=== PATIENT | male | born 1960 | race Caucasian/White ===

== ENCOUNTER 2024-07-24 11:00 | Emergency (ER) | payer BC, SELFPAY ==
[2024-07-24 11:05] VITALS: BP 171/97; PULSE 65; RESP 18; TEMP 36.3; O2SAT 96; BMI 30.3
--- NOTE | 2024-07-24 11:12 | ED.GENADULT ---
HPI - General Adult General Time Seen by Provider: 11:12 Date Seen: 07/24/24 Chief complaint: Flank Pain Stated complaint: Flank pain Time Seen by Provider: 07/24/24 11:12 Source: patient and RN notes reviewed Mode of arrival: ambulatory Limitations: no limitations History of Present Illness HPI narrative: This with 64-year-old male is ambulatory into the ED accompanied by presumed significant other for complaint of sudden onset right lower quadrant abdominal pain associated with urinary symptoms. About 1-2 hours ago he started with feeling urinary frequency of small amounts, feeling like he is not emptying. He has no nausea or vomiting but does have significant pain. He has had no fevers chills. He has not noted any hematuria. He has had no prior abdominal surgeries but does have a history of a kidney stone before with treatment of that. He indeed did have a history of a kidney stone a few years ago that required stent placement and what sounds to be lithotripsy. Again, no nausea or vomiting. No change in bowel habits. Pain came on suddenly, he feels it is consistent with kidney stone pain. Related Data Home Medications ?Medication ?Instructions ?Recorded ?Confirmed lisinopril 10 1 tab PO DAILY 12/28/23 07/24/24 mg-hydrochlorothiazide 12.5 mg tablet Zyrtec-D 07/24/24 Previous Rx's ?Medication ?Instructions ?Recorded ketorolac 10 mg tablet 10 mg PO Q6H PRN pain #20 tabs 07/24/24 oxycodone 5 mg tablet 5 mg PO Q6H PRN pain #10 tabs 07/24/24 tamsulosin 0.4 mg capsule (Flomax) 0.4 mg PO DAILY #14 caps 07/24/24 Allergies Allergy/AdvReac Type Severity Reaction Status Date / Time ibuprofen Allergy Hives Verified 07/04/24 14:03 Review of Systems Status of ROS: Reports: 6 or more systems reviewed and unremarkable except as noted in History and below [facility] Medical History Tear of medial meniscus of left knee ?S83.242A - Other tear of medial meniscus, current injury, left knee, initial encounter (ICD-10) Osteoarthritis of left knee ?M17.12 - Unilateral primary osteoarthritis, left knee (ICD-10) Left flank pain ?R10.9 - Unspecified abdominal pain (ICD-10) Sleep apnea ?G47.30 - Sleep apnea, unspecified (ICD-10) Hypertension ?I10 - Essential (primary) hypertension (ICD-10) Surgical History History of arthroscopy of right shoulder (04/25/15) ?Z98.890 - Other specified postprocedural states (ICD-10) Status post medial meniscectomy of right knee (06/04/16) ?Z98.890 - Other specified postprocedural states (ICD-10) Social History Smoking Status: Never smoker Do you use any of these nicotine containing products: None Second hand tobacco smoke exposure: No Exam Const: Vital Signs, click to edit/add: Vital Signs - 24 hr 07/24/24 11:05 Temperature 97.4 F L Pulse Rate [Pulse Oximeter] 65 Respiratory Rate 18 Blood Pressure [Ri ght Upper Arm] 171/97 H Pulse Oximetry 96 Oxygen Delivery Me thod Room Air This 64-year-old male is alert, interactive, no apparent distress. Does not appear significantly uncomfortable but would not say that he is at his baseline. Do see him move a little bit in bed at times. Sclera clear, conjugate gaze, symmetrical facial function, can speak in complete sentences. Lungs are clear no wheezing or crackles, no tachypnea, no CVA tenderness. CV regular rate and rhythm, no murmur, normal S1-S2, no S3-S4. Abdomen is soft, nondistended but he does have some mid to right lower quadrant tenderness without any rebound or guarding, no underlying masses noted. Documenting provider has reviewed patient's vital signs: yes Course Course ED Course: Patient is not experiencing any nausea right now, did discussed pain management, will start with some IV Toradol and can move to narcotics if needed. He has left urinalysis, will get this to the lab, will check basic labs with CBC, C reactive protein, basic metabolic panel and lactate. The sudden onset does support urinary symptoms but we did review that in the right lower quadrant there is bowel there including appendix. Will start with noncontrast CT but may need to consider follow-up imaging with contrast if there is no evidence of urinary source of this such as a kidney stone. Doubt infection as he is not febrile and symptoms of only been present to couple hours at most. If this is kidney stone, really should know the size of the stone to see if he will need urologic follow-up. Reevaluation(s) Time of Reevaluation #1: 11:58 Reevaluation #1: Patient did not have relief of pain with Toradol, is rating pain not out of 10 to nursing staff. Have ordered Zofran and morphine for him, awaiting CT imaging to come back. Urinalysis does not necessarily indicate stone pathology at this time. Time of Reevaluation #2: 12:26 Reevaluation #2: Have reviewed with Erik his CT imaging results. Did provide him a copy of the results. He does have a 3 mm stone at the right UVJ. We also discussed the lesion on the right kidney with comparison from a CT in 2020 which is when he reports was his last kidney stone. He will need outpatient follow-up for this, can contact Urology or see if his primary care provider can order the renal mass protocol imaging. Does not need to be done emergently. He notes that he is feeling urinary urgency but cannot urinate or only small amounts. We will bladder scan him at this time just to ensure that he is not having urinary retention. Sometimes patients with kidney stones can have the symptoms without any urinary retention. Time of Reevaluation #3: 12:48 Reevaluation #3: Bladder scan only showed 23 mL. Patient is likely just having irritative bladder symptoms from the right stone at the UVJ. Vital Signs Vital signs: Initial Vital Signs Temperature 97.4 F L 07/24/24 11:05 Temperature Source Temporal Artery Scan 07/24/24 11:05 Pulse Rate 65 07/24/24 11:05 Respiratory Rate 18 07/24/24 11:05 Blood Pressure 171/97 H 07/24/24 11:05 Blood Pressure Mean 121 H 07/24/24 11:05 Blood Pressure Position Sitting 07/24/24 11:05 Pulse Oximetry 96 07/24/24 11:05 Oxygen Delivery Method Room Air 07/24/24 11:05 Vital Signs Temperature 97.4 F L 07/24/24 11:05 Pulse Rate 65 07/24/24 11:05 Respiratory Rate 18 07/24/24 11:05 Blood Pressure 171/97 H 07/24/24 11:05 Pulse Oximetry 96 07/24/24 11:05 Oxygen Delivery Method Room Air 07/24/24 11:05 Temperature 97.4 F L 07/24/24 11:05 Pulse Rate 65 07/24/24 11:05 Respiratory Rate 18 07/24/24 11:05 Blood Pressure 171/97 H 07/24/24 11:05 Pulse Oximetry 96 07/24/24 11:05 Oxygen Delivery Method Room Air 07/24/24 11:05 Medications Administered Medications: Discontinued Medications Generic Name Dose Route Start Last Admin Trade Name Freq PRN Reason Stop Dose Admin Ketorolac Tromethamine 15 mg 07/24/24 11:17 07/24/24 11:38 Ketorolac 15 Mg/Ml Inj IVP 07/24/24 11:18 15 mg ONCE ONE Administration Morphine Sulfate 4 mg 07/24/24 11:57 07/24/24 12:17 Morphine 4 Mg/Ml Inj IVP 07/24/24 11:58 4 mg ONCE ONE Administration Ondansetron HCl 4 mg 07/24/24 11:57 07/24/24 12:18 Ondansetron 2 Mg/Ml Inj IVP 07/24/24 11:58 4 mg ONCE ONE Administration Medical Decision Making Lab Data Labs: Lab Results 07/24/24 07/24/24 Range/Units 11:16 11:35 WBC 9.20 (4.50-11.00) K/uL RBC 4.74 (4.30-5.90) m/uL Hgb 14.6 (13.5-17.5) gm/dL Hct 42.7 (37.0-53.0) % MCV 90 (80-100) fL MCH 31 (26-34) pg MCHC 34 (32-36) gm/dL RDW Coeff of Blu 11.3 L (11.5-15.5) % Plt Count 246 (140-440) K/uL Neut % (Auto) 72.6 H (42.0-72.0) % Lymph % (Auto) 19.1 L (20-44) % [place] % (Auto) 6.2 (0.0-11.0) % Eos % (Auto) 1.6 (0.0-7.0) % Baso % (Auto) 0.4 (0.0-3.0) % Neut # (Auto) 6.70 (1.7-7.0) K/uL Lymph # (Auto) 1.80 (0.90-2.90) K/uL [place] # (Auto) 0.60 (0.00-0.90) K/UL Eos # (Auto) 0.15 (0.00-0.50) K/uL Baso # (Auto) 0.04 (0.00-0.30) K/uL Abs Immat Gran (auto) 0.01 (0.00-0.30) K/uL Imm/Tot Granulo (auto) 0.1 % Sodium 139 (135-149) mmol/L Potassium 4.5 (3.6-5.1) mmol/L Chloride 105 (96-114) mmol/L Carbon Dioxide 29 (20-32) mmol/L Anion Gap 5 L (7-15) mEq/L BUN 21 (7-30) mg/dL Creatinine 0.9 (0.5-1.5) mg/dL Estimated Creat Clear 85.45 Estimated GFR 96 ml/min Glucose 131 H (60-115) mg/dL Lactate 1.1 (0.5-1.9) mmol/L Calcium 9.6 (8.4-10.6) mg/dL C-Reactive Protein < 0.5 L (0.5-1.0) mg/dL Urine Color Yellow (Yellow) Urine Appearance Clear (Clear) Urine pH 7.5 (5.0-8.5) Ur Specific [place] 1.020 (1.000-1.030) Urine Protein Negative (Negative) Urine Glucose (UA) Negative (Negative) Urine Ketones Negative (Negative) Urine Blood Negative (Negative) Urine Nitrite Negative (Negative) Urine Bilirubin Negative (Negative) Urine Urobilinogen 0.2 (0.2-1.0) Ur Leukocyte Esterase Negative (Negative) Urine RBC 0-2 (0-2) Urine WBC 0-2 (0-5) Ur Squamous Epith Cells None (None-Few) Urine Bacteria None (None) Imaging Data CT scan - abdomen: Attestation: I have reviewed the pertinent imaging results. My impression: Did review imaging and do see what is consistent with hydronephrosis on the right side, believe there is a stone along the right UVJ, wait radiology over read. Radiologist's impression: Patient: MARTA VALENCIA Facility:?[facility] Patient ID:?[id number] Site Patient ID:?[id number]. Site :?[id number] Study:?CT-Abdomen/Pelvis WITHOUT-07/24/2024 11:37:44 AM Ordering Physician:Maday Haley Final Report: INDICATION: Sudden onset right lower quadrant pain. History of kidney stones. TECHNIQUE: CT abdomen and pelvis acquired without contrast. COMPARISON: CT abdomen and pelvis without contrast 01/22/2021. FINDINGS: Lower chest: Mild bibasilar atelectasis. No pleural or pericardial effusions. Liver: Unremarkable. Spleen: Unremarkable. Pancreas: Unremarkable. Gallbladder and bile ducts: No calcified stones or biliary ductal dilatation. Kidneys: A 3 mm stone near the right ureterovesicular junction causes [id number] hydroureteronephrosis and perinephric stranding. An indeterminate exophytic 2.4 cm lesion in the lateral lower pole of the right kidney has increased. This previously measured 1.3 cm. Left kidney is unremarkable. Adrenal glands: Unremarkable. GI tract: No obstruction or focal inflammatory changes. Normal appendix. No free air or free fluid. Small fat containing umbilical hernia, unchanged. Lymph nodes: No pathologic lymphadenopathy. Vascular structures: Mild atherosclerotic disease. No abdominal aortic aneurysm. Pelvic Organs: Stone near the right ureterovesicular junction as discussed above. Bladder as imaged is otherwise unremarkable. Bones: No acute or suspicious osseous abnormality. Degenerative changes spine and pelvis. IMPRESSION: 1. Mild to moderate right hydroureteronephrosis due to 3 mm stone near the ureterovesicular junction. 2. Indeterminate exophytic 2.4 cm right renal lesion has increased. Follow-up CT renal mass protocol without and with IV contrast is recommended for further evaluation. Dictated by Vladimir Ferguson MD @ 07/24/2024 12:10:01 PM Please note that all CT scans at this facility use dose modulation, iterative reconstruction, and/or weight-based dosing when appropriate to reduce radiation dose to as low as reasonably achievable. Dictated by: Vladimir Ferguson MD @ 07/24/2024 12:10:22 (Electronic Signature) Discharge Plan Discharge Clinical Impression: Lesion of right [place] kidney, Renal colic on right side, Right nephrolithiasis Patient Disposition: Home, Self-Care Condition: Stable Instructions: Kidney Stones (ED), Renal Colic (ED) Additional Instructions: Start Flomax intake daily until the stone has passed. Can use Tylenol 1000 mg 3 times a day baseline for pain. For more moderate pain, can use the Toradol per prescription. If pain is severe, have written for oxycodone. If you are using oxycodone, this can be constipating and do recommend going on MiraLax 17 g daily and possibly even senna, 1-2 pills once to twice a day for a goal of a normal formed bowel movement daily. If you develop uncontrolled pain with this regimen, develops vomiting or fever with on passed kidney stone, do recommend re-evaluation. You need to follow-up with your primary care provider hopefully within the next 1-2 weeks, they may be able to order the outpatient CT scan to further evaluate this right renal lesion to ensure it is nothing concerning. You ultimately may need urology referral and can certainly try to get into the urologist your self rather than your primary care provider. Drink plenty of fluids with a goal of keeping your urine clear. Activity Level: Activity as Tolerated Prescriptions: New ketorolac 10 mg tablet 10 mg PO Q6H PRN (Reason: pain) Qty: 20 0RF Rx Instructions: maximum total duration of 5 days from all oral, intranasal, or parenteral formulations tamsulosin [Flomax] 0.4 mg capsule 0.4 mg PO DAILY Qty: 14 0RF oxycodone 5 mg tablet 5 mg PO Q6H PRN (Reason: pain) Qty: 10 0RF No Action lisinopril-hydrochlorothiazide 10-12.5 mg tablet 1 tab PO DAILY Zyrtec-D Follow Up/Referrals: Paco Manzanares MD [Primary Care Provider] - Stand Alone Forms: [employer] Info Instructions
--- NOTE | 2024-07-24 11:17 | CRLHL7_ITS ---
For Patients: As a result of the Century Cures Act, medical imaging exams and procedure reports are released immediately into your electronic medical record. You may view this report before your referring provider. If you have questions, please contact your health care provider. INDICATION: Sudden onset right lower quadrant pain. History of kidney stones. TECHNIQUE: CT abdomen and pelvis acquired without contrast. COMPARISON: CT abdomen and pelvis without contrast 01/22/2021. FINDINGS: Lower chest: Mild bibasilar atelectasis. No pleural or pericardial effusions. Liver: Unremarkable. Spleen: Unremarkable. Pancreas: Unremarkable. Gallbladder and bile ducts: No calcified stones or biliary ductal dilatation. Kidneys: A 3 mm stone near the right ureterovesicular junction causes [id number] hydroureteronephrosis and perinephric stranding. An indeterminate exophytic 2.4 cm lesion in the lateral lower pole of the right kidney has increased. This previously measured 1.3 cm. Left kidney is unremarkable. Adrenal glands: Unremarkable. GI tract: No obstruction or focal inflammatory changes. Normal appendix. No free air or free fluid. Small fat containing umbilical hernia, unchanged. Lymph nodes: No pathologic lymphadenopathy. Vascular structures: Mild atherosclerotic disease. No abdominal aortic aneurysm. Pelvic Organs: Stone near the right ureterovesicular junction as discussed above. Bladder as imaged is otherwise unremarkable. Bones: No acute or suspicious osseous abnormality. Degenerative changes spine and pelvis. IMPRESSION: 1. Mild to moderate right hydroureteronephrosis due to 3 mm stone near the ureterovesicular junction. 2. Indeterminate exophytic 2.4 cm right renal lesion has increased. Follow-up CT renal mass protocol without and with IV contrast is recommended for further evaluation. Dictated by Vladimir Ferguson MD @ 07/24/2024 12:10:01 PM Please note that all CT scans at this facility use dose modulation, iterative reconstruction, and/or weight-based dosing when appropriate to reduce radiation dose to as low as reasonably achievable. Dictated by: Vladimir Ferguson MD @ 07/24/2024 12:10:22 (Electronically Signed)
[2024-07-24 11:23] LABS: Appearance Urine Clear (Clear); Bilirubin Urine Negative (Negative); Blood Urine Negative (Negative); Color Urine Yellow (Yellow); Glucose Urine Negative (Negative); Ketones Urine Negative (Negative); Leukocyte Esterase Urine Negative (Negative); Nitrite Urine Negative (Negative); Protein Urine Negative (Negative); Urobilinogen Urine 0.2 (0.2-1.0); pH Urine 7.5 (5.0-8.5)
[2024-07-24 11:32] LABS: RBC Urine 0-2 (0-2); WBC Urine 0-2 (0-5)
[2024-07-24] MEDS: KETOROLAC 15 MG/ML inj IVP (11:38)
[2024-07-24 11:43] LABS: Lactate* 1.1 mmol/L (0.5-1.9)
[2024-07-24 11:46] LABS: Basophils Absolute Auto 0.04 K/uL (0.00-0.30); Basophils Percent Auto 0.4 % (0.0-3.0); Eosinophils Absolute Auto 0.15 K/uL (0.00-0.50); Eosinophils Percent Auto 1.6 % (0.0-7.0); Hematocrit 42.7 % (37.0-53.0); Hemoglobin* 14.6 gm/dL (13.5-17.5); Immature Granulocytes Abs Auto 0.01 K/uL (0.00-0.30); Immature Granulocytes Pct Auto 0.1 %; Lymphocytes Percent Auto 19.1 % (20-44); Mean Corpuscular HGB Conc 34 gm/dL (32-36); Mean Corpuscular Hemoglobin 31 pg (26-34); Mean Corpuscular Volume 90 fL (80-100); Monocytes Percent Auto 6.2 % (0.0-11.0); Neutrophils Percent Auto 72.6 % (42.0-72.0); Platelet Count* 246 K/uL (140-440); RDW Coefficient of Variation % 11.3 % (11.5-15.5); Red Blood Count 4.74 m/uL (4.30-5.90)
[2024-07-24 11:49] LABS: Slide Review Reflex No
[2024-07-24 11:59] LABS: Chloride* 105 mmol/L (96-114)
[2024-07-24 12:00] LABS: Potassium* 4.5 mmol/L (3.6-5.1); Sodium* 139 mmol/L (135-149)
[2024-07-24 12:02] LABS: Creatinine* 0.9 mg/dL (0.5-1.5); Est. Creatinine Clearance* 85.45; Estimated Glomerular Filt Rate 96 ml/min
[2024-07-24 12:03] LABS: Anion Gap 5 mEq/L (7-15); Blood Urea Nitrogen* 21 mg/dL (7-30); Calcium* 9.6 mg/dL (8.4-10.6); Carbon Dioxide* 29 mmol/L (20-32); Glucose* 131 mg/dL (60-115)
[2024-07-24 12:07] LABS: C Reactive Protein* < 0.5 mg/dL (0.5-1.0)
[2024-07-24] MEDS: MORPHINE 4 MG/ML INJ IVP (12:17)
[2024-07-24] MEDS: ONDANSETRON 2 MG/ML inj 4 MG IVP (12:18)
== END 2024-07-24 13:05 | disposition home or self-care (01) ==
PROVIDERS: Emergency Provider Family Medicine; PCP Family Medicine
DX: N28.9 Disorder of kidney and ureter, unspecified (principal); N23 Unspecified renal colic; N20.0 Calculus of kidney
CPT/HCPCS: 36415; 51798; 74176; 80048; 81001; 83605; 85025; 86140; 94761; 96374; 96375; 99284; J1885; J2270; J2405